=== PATIENT | female | born 1970 | race Caucasian/White ===

== ENCOUNTER → 2021-02-09 10:24 | Outpatient (BNVA) | payer OTHER, SELFPAY | PROVIDERS: Family Provider Family Medicine; Referring Provider Registered Nurse; Visit Provider Anesthesiology Pain Medicine | DX: M54.6 Pain in thoracic spine (principal); M50.020 Cervical disc disorder with myelopathy, mid-cervical region, unspecified level; M54.12 Radiculopathy, cervical region; M54.9 Dorsalgia, unspecified; Z98.1 Arthrodesis status; Z79.891 Long term (current) use of opiate analgesic; Z98.890 Other specified postprocedural states; Z87.891 Personal history of nicotine dependence | CPT/HCPCS: 99213 ==

== ENCOUNTER → 2021-03-08 13:22 | Outpatient (BNVA) | payer OTHER, SELFPAY | PROVIDERS: Family Provider Family Medicine; PCP Family Medicine; Visit Provider Anesthesiology | DX: G89.29 Other chronic pain (principal); M50.020 Cervical disc disorder with myelopathy, mid-cervical region, unspecified level; M54.12 Radiculopathy, cervical region; M54.41 Lumbago with sciatica, right side; M54.42 Lumbago with sciatica, left side; M54.9 Dorsalgia, unspecified; Z98.1 Arthrodesis status; Z98.890 Other specified postprocedural states; Z79.891 Long term (current) use of opiate analgesic | CPT/HCPCS: 99214 ==

== ENCOUNTER 2021-03-14 09:48 | Outpatient (CLI) | payer OTHER, SELFPAY ==
--- NOTE | 2021-03-14 09:56 | MM_ITS ---
WS: [id number] BILATERAL SCREENING DIGITAL MAMMOGRAM WITH CAD HISTORY: SCREENING COMPARISON: 09/30/2018, 09/26/2017 Bilateral CC and MLO views submitted. Computer aided detection analyzed. Breast composition: The breasts are heterogeneously dense, which may obscure small masses. No suspici ous masses, microcalcifications or architectural distortion. There are multiple partially obscured no dules which are stable in the mid LEFT breast. These nodules have been present on prior studies. Jesus gn calcifications in each breast. Lymph node along the posterior RIGHT chest wall. MM/[place] [id number] IMPRESSION: BI-RADS: 2-Benign FOLLOW UP: 1 Year Follow-up
== END 2021-03-14 09:49 | disposition home or self-care (01) ==
LOC: RADSHAW 09:52
PROVIDERS: Family Provider Family Medicine; PCP Registered Nurse; Visit Provider Registered Nurse
DX: Z12.31 Encounter for screening mammogram for malignant neoplasm of breast (principal)
CPT/HCPCS: 77067

== ENCOUNTER → 2021-05-02 10:40 | Outpatient (BNVA) | payer OTHER, SELFPAY | PROVIDERS: Family Provider Family Medicine; PCP Registered Nurse; Visit Provider Anesthesiology | DX: M54.5 Low back pain (principal); M50.020 Cervical disc disorder with myelopathy, mid-cervical region, unspecified level; M54.12 Radiculopathy, cervical region; Z98.1 Arthrodesis status; Z98.890 Other specified postprocedural states; Z79.891 Long term (current) use of opiate analgesic | CPT/HCPCS: 99214 ==

== ENCOUNTER → 2021-07-06 12:53 | Outpatient (BNVA) | payer OTHER, SELFPAY | PROVIDERS: Family Provider Family Medicine; PCP Registered Nurse; Visit Provider Anesthesiology | DX: G89.29 Other chronic pain (principal); M54.50 Low back pain, unspecified; M50.020 Cervical disc disorder with myelopathy, mid-cervical region, unspecified level; M54.12 Radiculopathy, cervical region; Z98.890 Other specified postprocedural states; Z98.1 Arthrodesis status; Z79.891 Long term (current) use of opiate analgesic | CPT/HCPCS: 99214 ==

== ENCOUNTER → 2022-05-28 09:03 | Outpatient (BNVA) | payer OTHER, SELFPAY | PROVIDERS: Family Provider Family Medicine; PCP Registered Nurse; Visit Provider Orthopaedic Surgery | DX: M47.816 Spondylosis without myelopathy or radiculopathy, lumbar region (principal); Z98.1 Arthrodesis status; M41.9 Scoliosis, unspecified | CPT/HCPCS: 72050; 72100 ==

== ENCOUNTER 2022-06-21 10:23 | Outpatient (CLI) | payer OTHER, SELFPAY ==
--- NOTE | 2022-06-21 11:00 | MR_ITS ---
WS: [id number] MRI LUMBAR SPINE NONCONTRAST HISTORY: lower back pain COMPARISON: No similar studies. Radiographs 05/28/2022 TECHNIQUE: Sagittal and axial multisequence imaging is submitted. Posterior lumbar alignment is normal. Less than 2 mm retrolisthesis of L2 and L3. Interbody spacer wi th loss of disc space at L4-5. Spacer appears in appropriate position. Mild disc space narrowing at L5-S1. Conus terminates normally at L1-2 disc level. L1-L2: Normal. L2-L3: Diffuse annular disc bulging slightly greater to the LEFT. Mild encroachment into the LEFT for amen. Deformity and effacement of the ventral CSF. There is mild central and bilateral subarticular r ecess stenosis and foraminal stenosis. Slightly greater contact on the LEFT L2 and L3 nerve roots. L3-L4: Diffuse annular disc bulge slightly greater to the LEFT. Mild facet and ligamentum flavum hype rtrophy. Very mild central and bilateral subarticular recess stenosis. L4-L5: Mild facet and ligamentum flavum hypertrophy. Facet joint arthritis. Hypertrophic osteophytes extend into the foramen bilaterally causing foraminal narrowing, LEFT greater than RIGHT. Posterior l aminectomy defects. L5-S1: Very slight disc bulging and facet and ligamentum flavum arthritis. Mild RIGHT and moderate LE FT foraminal stenosis. Retroperitoneal structures are negative. MR/MR lumbar spine wo con* [id number] IMPRESSION: 1. Interbody spacer at the L4-5 level appears intact. There is mild disc space narrowing. 2. Moderate LEFT foraminal stenosis at L5-S1 and mild RIGHT foraminal stenosi s. 3. Hypertrophic osteophytes at L4-5 causing mild bilateral foraminal stenosis, LEFT greater than RIGHT. 4. Mild central, bilateral subarticular recess and foraminal stenosis at L2-3. Slightly greater contact on the LEFT L2 and L3 nerve roots. 5. Mild central and bilateral subarticular recess stenosis at L3-4.
--- NOTE | 2022-06-21 11:45 | MR_ITS ---
WS: [id number] MRI CERVICAL SPINE NONCONTRAST HISTORY: neck pain COMPARISON: 09/18/2018 Technique: Multiplanar, multisequence noncontrast imaging of the cervical spine. Mild straightening of the normal cervical lordosis. Anterior cervical fusion at C5-6 with interbody s pacer. Moderate disc space narrowing and desiccation at C6-7. Signal within the cervical cord is normal. Visualized posterior fossa is unremarkable. Craniocervical junction, C1 and C2 relationship, odontoid process and soft tissues are normal. C2-C3: Normal. C3-C4: Mild osteophytic ridging. Very mild RIGHT foraminal stenosis. Similar to the prior study with no progression. C4-C5: Mild anterior wedging of C4 is unchanged. No stenosis or disc protrusion. C5-C6: Mild osteophytic ridging with no focal disc protrusion. There is mild encroachment upon the ve ntral thecal sac. Mild central and bilateral foraminal stenosis. C6-C7: Diffuse osteophytic ridging and very mild disc bulging. Moderate size osteophytes and possibly disc extend into the foramina. There is moderate central with moderate to severe bilateral foraminal stenosis. Mild progression since the prior examination from 2018. C7-T1: Normal. Paraspinal soft tissue are normal. MR/MR cervical spin wo con* [id number] IMPRESSION: 1. Prior anterior cervical fusion at C5-6 with interbody spacer is unchanged. 2. Moderate central with moderate to severe bilateral foraminal stenosis at C6 -7 stenosis is predominantly due to osteophyte disease. Only minimal progressio n since the prior study. 3. Mild central and bilateral foraminal stenosis at C5-6. Osteophytic ridging contributing to the stenosis. 4. Mild RIGHT foraminal stenosis at C3-4.
== END 2022-06-21 10:24 | disposition home or self-care (01) ==
LOC: RAD 10:25
PROVIDERS: Family Provider Family Medicine; PCP Registered Nurse; Visit Provider Orthopaedic Surgery
DX: Z98.890 Other specified postprocedural states (principal); Z98.1 Arthrodesis status; M48.02 Spinal stenosis, cervical region; M25.78 Osteophyte, vertebrae; M48.07 Spinal stenosis, lumbosacral region; M48.061 Spinal stenosis, lumbar region without neurogenic claudication
CPT/HCPCS: 72141; 72148

== ENCOUNTER 2022-06-25 15:44 | Outpatient (CLI) | payer OTHER, SELFPAY | END 2022-06-25 15:45 | disposition home or self-care (01) | LOC: SPT 15:45 | PROVIDERS: Family Provider Family Medicine; PCP Registered Nurse; Visit Provider Physician Assistant | DX: Z46.89 Encounter for fitting and adjustment of other specified devices (principal); G56.01 Carpal tunnel syndrome, right upper limb | CPT/HCPCS: L3908 ==

== ENCOUNTER 2022-09-06 05:45 | Day surgery (SDC) | payer MEDICARE, SELFPAY ==
[2022-09-02 08:24] VITALS: BMI 29.2
--- NOTE | 2022-09-02 09:11 | ANES.PREANE2 ---
Pre-Anesthetic Assessment Height/Weight: Height 1.63 m Weight 77.111 kg Preop Diagnosis: Pseudoarthrosis C5-6, degenerative disc disease C6-7, cervical radiculopath Operation Date: 09/06/22 12:40 Proposed Procedures p ACDF C5/6 C6/7 [id number](Not Applicable) - Jared Lowe, DO Familial anesthetic complications: none Was Beta Lakisha taken within 24 hours: N/A Was Clonidine taken within 24 hours: N/A Social Tobacco and No alcohol Exam alert, oriented x 3 and regular rate & rhythm Airway Submandibular: within normal limits Cervical ROM: Other (Some extension limitation from previous surgery, but reasonable ROM) Mallampati: Class II Dentition: full Pulmonary Chronic Obstructive Pulmonary Disease Musc/skel Osteoarthritis/DJD Neuropsych Anxiety and Depression Anesthetic Plan ASA status: 3 Anesthesia: General Medications/Allergies Home Medications Medication Instructions Recorded Confirmed Last Taken Type albuterol sulfate 90 mcg/actuation 2 puff inhalation Q6H PRN 12/27/19 09/02/22 09/01/22 History aerosol inhaler (ProAir HFA) Shortness Of Breath rizatriptan 5 mg tablet 5 mg PO Q2H PRN Migraine Headache 12/27/19 09/02/22 Unknown History sertraline 100 mg tablet (Zoloft) 100 mg PO BID 12/27/19 09/02/22 09/01/22 History hydrocodone 10 mg-acetaminophen 1 tab PO TID PRN pain 30 days #90 09/27/21 09/02/22 09/01/22 Rx 325 mg tablet tabs cock up splint #1 ea 06/25/22 06/25/22 Unknown Rx Intraoperative Neuromonitoring #1 ea 08/19/22 Unknown Rx Allergies Allergy/AdvReac Type Severity Reaction Status Date / Time morphine Allergy Intermediate increases Verified 06/25/22 13:43 heart rate cranberry AdvReac Intermediate hives Verified 06/25/22 13:43 adhesive tape AdvReac Mild rash Verified 06/25/22 13:43 PFS Anesthesia Medical History (Updated 06/25/22 @ 14:27 by Ganga Arredondo PA-C) Cervical disc disorder with myelopathy of mid-cervical region Chronic narcotic use Encounter for narcotic contract discussion Opioid contract exists Pain management contract signed Surgical History (Updated 09/02/22 @ 08:22 by Melissa James) History of lumbar laminectomy 2011, [facility], L4-5 decompression. 2011, [place], L4-5 reexploration. Status post cervical spinal fusion C5-C6 ACDFF, [place], [facility] [place]. Social History Smoking and tobacco status: current every day smoker Second hand smoke exposure: Yes Alcohol intake: never Household members: spouse Marital status: Current occupational status: unemployed History of recent travel: No Data Anesthesia Cardiac Studies: No Data to Display
[2022-09-06] VITALS (8 sets, daily range): BP systolic 123–172; BP diastolic 71–109; PULSE 70–98; RESP 17–18; TEMP 36.2–36.8; O2SAT 90–97
--- NOTE | 2022-09-06 | XR_ITS ---
WS: [id number] Cervical spine, C-arm fluoroscopy views, 09/06/2022 Clinical Data: ACDF C5-6, C6-7 Comparison: Cervical spine, 05/28/2022 Findings: There is an additional anterior cervical disc fusion at C6-C7. The prior anterior cervical disc fusion at C5-6 remains stable. XR/XR cervical spine 3V* [id number] Impression: New anterior cervical disc fusion at C6-C7.
[2022-09-06] MEDS: sodium chloride 0.9% 1,000 ML 30 ML IV (06:06)
--- NOTE | 2022-09-06 06:17 | PM.HP ---
Providers/Chief Complaint Primary Care Provider: Mabel Hilton DO Chief Complaint: ACDF C5/6 C6/7 [id number] History of Present Illness Teri Link is a 52 year old female annalisa and right arm pain which has been ongoing progressively intensifying.? She does have known carpal tunnel syndrome on the right but has had a previous cervical C5-[address] Velázquez.? The pain has progressively intensified in her neck failing conservative treatment such as physical therapy and medications.? She describes headaches pain with any type of activity difficulty sleeping due to positions that her head is in and constant pain.? She describes weakness that travels down into her hand hands go to sleep at night she has not been wearing any braces for carpal tunnel symptoms.? She describes some clumsiness stumbling but also mainly headaches.? Denies any swallowing difficulties. Review of Systems General: Reports: 10 or more systems reviewed and unremarkable except in HPI and below Const: Denies: fever(s) or chills Card: Denies: chest pain or dyspnea on exertion Resp: Denies: dyspnea or productive cough GI: Denies: abdominal pain, nausea or vomiting : Denies: difficulty voiding Musc: Reports: joint pain, joint swelling and limited range of motion Skin/Breast: Denies: changes in skin color or dry skin Neuro: Denies: numbness in extremities or weakness in extremities Psych: Denies: anxiety Stanley/Lymph: Denies: easy bruising or easy bleeding Medications/Allergies Home Medications Medication Instructions Recorded Confirmed Last Taken Type albuterol sulfate 90 mcg/actuation 2 puff inhalation Q6H PRN 12/27/19 09/06/22 09/05/22 History aerosol inhaler (ProAir HFA) Shortness Of Breath rizatriptan 5 mg tablet 5 mg PO Q2H PRN Migraine Headache 12/27/19 09/06/22 Unknown History sertraline 100 mg tablet (Zoloft) 100 mg PO BID 12/27/19 09/06/22 09/05/22 21:00 History hydrocodone 10 mg-acetaminophen 1 tab PO TID PRN pain 30 days #90 09/27/21 09/06/22 09/05/22 21:00 Rx 325 mg tablet tabs cock up splint #1 ea 06/25/22 06/25/22 Unknown Rx Intraoperative Neuromonitoring #1 ea 08/19/22 Unknown Rx Allergies Allergy/AdvReac Type Severity Reaction Status Date / Time morphine Allergy Intermediate increases Verified 09/06/22 05:52 heart rate cranberry AdvReac Intermediate hives Verified 09/06/22 05:52 adhesive tape AdvReac Mild rash Verified 09/06/22 05:52 PFSH Acute PFSH: Medical History (Updated 06/25/22 @ 14:27 by Ganga Arredondo PA-C) Cervical disc disorder with myelopathy of mid-cervical region Chronic narcotic use Encounter for narcotic contract discussion Opioid contract exists Pain management contract signed Surgical History (Updated 09/02/22 @ 08:22 by Melissa James) History of lumbar laminectomy 2011, [facility], L4-5 decompression. 2011, [place], L4-5 reexploration. Status post cervical spinal fusion C5-C6 ACDFF, 1999, [facility] [place]. Social History Smoking and tobacco status: current every day smoker Second hand smoke exposure: Yes Alcohol intake: never Household members: spouse Marital status: Current occupational status: unemployed History of recent travel: No Vitals/I&O/Wt Last Vital Signs Temp 97.4 F L 09/06/22 05:56 Pulse 70 09/06/22 05:56 Resp 18 09/06/22 05:56 BP 139/71 09/06/22 05:56 Pulse Ox 97 09/06/22 05:56 O2 Del Method 09/06/22 05:57 Physical Exam Narrative: Patient demonstrat es normal gait.? N egative Romberg or signs of ataxia.? Normal coordinati on and normal stab ility.? Moderately tender with palpa tion throughout th e cervical and upp er thoracic region s.? Normal sensati on to light touch in all dermatomal layers.? No signs of muscle wasting. ? Normal functiona l range of motion of the cervical wi th flexion to 35 d egrees, extends 25 degrees, rotates 35 degrees symmetr ically without dif ficulty, laterally bends 10 degrees symmetrically.? Po sitive Spurling an d Lira tests.? Normal motor stren gth in all muscle groups with 4/5 st rength in shoulder s, elbows, wrists and digits bilater ally.? No gross la xity.? Reflexes 2+ and symmetric but the biceps, devin ps and brachioradi bailey bilaterally.? Positive Phalen's and Tinel's sign on the right negat diaz on the left.? Radial pulses 2+ b ilaterally.? No pa lpable lymphadenop athy.? No evidence of peripheral sara ma Palpable pain over the right mj ulder with positiv e cross chest posi tive Beltre.? Pos itive supraspinatu s test negative ex am on the left. P atient presents wi th normal gait. ? Demonstrates raisi ng up onto heels a nd toes with diffi culty.? Exhibits n ormal coordination and normal stabil ity.? Moderate pal patory or percussi on pain throughout the paraspinous m usculature of the thoracolumbar spin e.? No obvious cur vature in the forw whit bend test.? Ex amination reveals normal alignment, normal functional range of motion of the thoracolumbar spine with Flexio n to 35 degrees, e xtends 15 degrees, laterally bends 2 0 degrees symmetri manas.? Normal sen sation to light to uch through all de rmatomal layers.? Normal sensation l ight touch down michele th lower extremiti es with 4/5 motor strength throughou t all motor groups .? No palpable david n over the SI join ts bilaterally.? N egative Eloy an d Fabere sign.? Po sitive straight le g raise on the rig ht negative on the left.? Skin is cl ear warm with norm al sensation to li ght touch, calves are supple with no medial thigh tend erness,? negative Homans' sign.? No palpable lymphaden opathy bilaterally .? Reflexes are 2+ and symmetric abo ut the knees and A chilles.? No hyper reflexia or clonus .? Downgoing Desiree ski's bilaterally. ? Dorsalis pedis a nd posterior tibia l pulses are 2+.? No palpable edema bilaterally.? Danish edly tender with p alpation over both greater trochante luciano regions right greater than left. HENMT:?? COMMON NORMALS: no rmocephalic? HEAD & SCALP: normoceph alic Resp:?? COMMON NORMALS: no rmal respiratory e ffort Cardio:?? COMMON NORMALS: re gular rate and reg ular rhythm? RATE: regular rate? RHY THM: regular rhyth m GI:?? COMMON NORMALS: So ft to palpation an d non-tender? PALP ATION: Yes Soft to palpation :?? COMMON NORMALS: Ye s no CVA tendernes s? BLADDER/KIDNEY EXAM: Yes no CVA t enderness Back/Pelvis:?? COMMON NORMALS: no CVA tenderness Psych:?? COMMON NORMALS: me ntal status grossl y normal and coope rative A&P Assessment and plan (1) Cervical spondylosis with radiculopathy: revision C5-6 which shows and appears to be pseudoarthrosis as well as degenerative changes at C6-7.? She does have known right carpal tunnel syndrome we will place her in a cock up wrist splint to be worn at night.? Discussed this at length with Dr. Lowe he reviewed the studies and was in to discuss operative intervention on her cervical spine.? We will proceed with a revision C5-6 and C6-7 ACDF. Attestations Medical Necessity Statement*: failed conservative tx Coding Level of Care Code Acute Wave Guide Assembler for g Fwd Diagnoses Cervical spondylosis with radiculopathy M47.22
[2022-09-06] MEDS: midazolam 1 mg/mL INJ 2 mL 2 MG IVP (06:31)
[2022-09-06] MEDS: ceFAZolin 2,000 MG in sodium chloride 0.9% (plus) 50 ML 100 MG IV (07:00)
--- NOTE | 2022-09-06 07:35 | SUR.OPER ---
family updated of surgical status
--- NOTE | 2022-09-06 07:39 | P.ANESUD_ITS ---
Pre-Anesthetic Update Pre-Anesthetic Assessment: Date of Surgery/Procedure: 09/06/22 Preop Tamanna gnosis: Pseudoarthrosis C5-6, degenerative disc disease C6-7, cervical radiculopath Proposed Procedure: Operation Date: 09/06/22 07:00 Proposed Procedures p ACDF C5/6 C6/7 [id number](Not Applicable) - Jared Lowe, DO Any changes to Pre-Anesthetic Assessment?: No Last Intake: Intake Last Liquid Date 09/05/22 Last Liquid Time 19:30 Last Solid Date 09/05/22 Last Solid Time 19:30 Vitals: Temperature 97.4 F L 09/06/22 05:56 Temperature Source Temporal Artery S can 09/06/22 05:56 Pulse Rate 70 09/06/22 05:56 Respiratory Rate 18 09/06/22 05:56 Blood Pressure 139/71 09/06/22 05:56 Blood Pressure Abbie n 93 09/06/22 05:56 Pulse Oximetry 97 09/06/22 05:56 Oxygen Delivery Me thod 09/06/22 05:57 Exam: Pre-Anes Outpt Exam: alert, oriented x 3, clear to auscultation bilaterally and regular rate & rhythm Cardiac Studies: No Data to Display
--- NOTE | 2022-09-06 08:43 | PM.OP ---
Operative Report Date of procedure: September 06, 2022 Pre-op diagnosis: Preop Diagnosis Pseudoarthrosis C5-6, degenerative disc disease C6-7, cervical radiculopath Post-op diagnosis: same Procedure done: 1. Anterior discectomy C6/7 2. Insertion of Cage C6/7 3. Instrumentation with anterior plate from C6-C7 4. Use of allograft Surgeon: Jared Lowe Defensive Line Coach: Ganga Arredondo Defensive Line Coach: The syrup mixer assistant, Ganga Arredondo, PAC was needed for his expertise under the microscope. He was important and necessary throughout the procedure to complete in a safe and timely manner. He assisted with patient positioning prepping and draping tissue retraction suctioning of the operative field protection of the dural sac and tissue closure Estimated blood loss (mL): 50 Procedure: 1. Anterior discectomy C6/7 2. Insertion of Cage C6/7 3. Instrumentation with anterior plate from C6-C7 4. Use of allograft The patient was taken to the operating room, where he underwent general endotracheal anesthesia without complications. He was then positioned supine on the operating table, and all areas of impingement were well padded. The arms were carefully padded and tucked at his sides. A roll was placed between the shoulder blades.. An x-ray was done to determine the appropriate level for the skin incision. The entire neck was then sterilely prepped and draped in the usual fashion. Neuromonitoring was attached prior to prepping. A transverse skin incision was made and carried down to the platysma muscle. This was then split in line with its fibers. Blunt dissection was carried down medial to the carotid sheath and lateral to the trachea and esophagus until the anterior cervical spine was visualized. A needle was placed into a disc and an x-ray was done to determine its location. The longus colli muscles were then elevated bilaterally with the electrocautery unit. Self-retaining retractors were placed deep to the longus colli muscle. Attention was brought to the C6/7 level that was confirmed on x-ray. A caspar pin was placed into the C6 vertebrae and the C7 vertebrae. The disk space was then distracted. The microscope was then brought in. A radical anterior discectomies were performed at CC6/7. This included complete removal of the anterior annulus, nucleus, and posterior annulus. The posterior longitudinal ligament was removed as were the posterior osteophytes. Foraminotomies were then accomplished bilaterally. This was done using a high speed ameena, kerrison rongeurs and curretes Once all of this was accomplished, the curved currette was used to check for any residual compression. The central canal was wide open as were the foramen. A high-speed bur was used to remove the cartilaginous endplates above and below the interspace. Bleeding cancellous bone was exposed. The disc space were measured and appropriate size cage were placed sterilely onto the field. Allograft graft was packed into the cages. The cage was then placed and there was good juxtaposition against the bleeding decorticated surfaces and good distraction of each interspace. The Leeds pins were removed. Bone wax was used to prevent any bleeding from occurring at the pin sites. A screw was placed through the cage into the C6 vertebrae and another screw was placed through the cage into the C7 vertebra there was excellent purchase. A final x-ray was done confirming good position of the hardware and Cage. The screws were then applied, also with excellent purchase. Following a final copious irrigation, there was good hemostasis and no dural leaks. The carotid pulse was strong. The wounds were then closed in layers using 2-0 Vicryl suture for the platysma muscle, 2-0 Vicryl suture for the subcutaneous tissue, and 4-0 monocryl suture in a subcuticular skin closure. Glue was placed followed by application of a sterile dressing. The drain was hooked to bulb suction. A soft collar was applied. The patient was then carefully returned to the supine position on his hospital bed where he was reversed and extubated and taken to the recovery room having tolerated the procedure well.
[2022-09-06] MEDS: HYDROmorphone 1 mg/mL INJ 1 mL 0.25 MG IVP (09:28)
[2022-09-06] MEDS: HYDROcodone-acetaminophen 5-325 mg Tablet 2 TAB PO (10:04)
--- NOTE | 2022-09-06 15:34 | ANE.PACU2 ---
Inpatient post-anesthesia follow up: Airway intact: Yes Vital signs: Temperature 98.2 F Pulse Rate 74 Respiratory Rate 18 Blood Pressure 123/72 Pulse Oximetry 92 Oxygen Delivery Me thod Room Air Oxygen Flow Rate 6 Fraction of Inspir ed Oxygen Hydration adequate: Yes Nausea and vomiting: No Pain level: 3 Mental status: Baseline
== END 2022-09-06 10:28 | disposition home or self-care (01) ==
PROVIDERS: PCP Family Medicine; Visit Provider Orthopaedic Surgery
PROC: 0RB30ZZ Excision of Cervical Vertebral Disc, Open Approach (ICD-10-PCS; CPT 22551; principal; 2022-09-06 07:00)
DX: S12.400A Unspecified displaced fracture of fifth cervical vertebra, initial encounter for closed fracture (principal); X58.XXXA Exposure to other specified factors, initial encounter; M47.22 Other spondylosis with radiculopathy, cervical region; M50.323 Other cervical disc degeneration at C6-C7 level; J44.9 Chronic obstructive pulmonary disease, unspecified; F17.210 Nicotine dependence, cigarettes, uncomplicated
CPT/HCPCS: 20930; 22551; 22845; 22853; 72040; 76000; C1713; C9359; J0330; J0690; J1100; J1170; J2250; J2370; J2405; J2704; J2710; J3010; J3490; J7030

== ENCOUNTER → 2022-09-17 12:47 | Outpatient (BNVA) | payer MEDICARE, SELFPAY | PROVIDERS: PCP Family Medicine; Visit Provider Orthopaedic Surgery | DX: Z47.89 Encounter for other orthopedic aftercare (principal); Z98.1 Arthrodesis status | CPT/HCPCS: 99024 ==

== ENCOUNTER → 2022-10-15 13:24 | Outpatient (BNVA) | payer MEDICARE, SELFPAY | PROVIDERS: PCP Family Medicine; Visit Provider Orthopaedic Surgery | DX: Z48.89 Encounter for other specified surgical aftercare (principal) | CPT/HCPCS: 72040; 99024 ==

== ENCOUNTER → 2022-11-26 12:48 | Outpatient (BNVA) | payer MEDICARE, SELFPAY | PROVIDERS: PCP Family Medicine; Visit Provider Orthopaedic Surgery | DX: Z47.89 Encounter for other orthopedic aftercare (principal); Z98.1 Arthrodesis status | CPT/HCPCS: 72040; 99024 ==

== ENCOUNTER → 2023-12-25 14:26 | Outpatient (BNVA) | payer MEDICARE, SELFPAY | PROVIDERS: PCP Family Medicine; Visit Provider Dermatology | DX: L72.0 Epidermal cyst (principal); L57.8 Other skin changes due to chronic exposure to nonionizing radiation; L57.3 Poikiloderma of Civatte; L70.0 Acne vulgaris; L81.4 Other melanin hyperpigmentation | CPT/HCPCS: 99214 ==

== ENCOUNTER → 2024-07-30 11:02 | Outpatient (BNVA) | payer MEDICARE, SELFPAY | PROVIDERS: PCP Family Medicine; Visit Provider Student in an Organized Health Care Education/Training Program | DX: G56.03 Carpal tunnel syndrome, bilateral upper limbs; G56.22 Lesion of ulnar nerve, left upper limb | CPT/HCPCS: 73130; 99204 ==

== ENCOUNTER 2024-09-01 07:55 | Day surgery (SDC) | payer MEDICARE, SELFPAY ==
[2024-09-01] VITALS (8 sets, daily range): BP systolic 102–148; BP diastolic 23–83; PULSE 55–70; RESP 16–18; TEMP 36.2–36.5; O2SAT 65–96; BMI 26.5
[2024-09-01] MEDS: sodium chloride 0.9% 1,000 ML 30 ML IV (09:07)
[2024-09-01] MEDS: ketorolac 30 mg/mL INJ IVP (09:08)
[2024-09-01] MEDS: acetaminophen 1,000 MG/100 ML PIGGYBACK 400 MG IV (09:12)
[2024-09-01] MEDS: scopolamine 1.5 Patch 1 PATCH TRANSDERMA (09:23)
--- NOTE | 2024-09-01 09:25 | W.PM.OPSUD ---
Surgery/Procedure H&P Update DATE OF PROCEDURE: September 01, 2024 DATE H&P PERFORMED: 07/30/24 H&P UPDATE INFORMATION: I have reviewed H&P completed within last 30 days, I have examined patient prior to procedure and No changes to prior documentation PREOP DIAGNOSIS: Right carpal tunnel syndrome PRIMARY INDICATION FOR PROCEDURE: Right carpal tunnel syndrome PLANNED PROCEDURE: Operation Date: 09/01/24 09:35 Proposed Procedures p Carpal Tunnel Release(Right) - Gurdeep Zimmer DO
--- NOTE | 2024-09-01 09:26 | W.PM.OPSFHP ---
Same Day Surgery H&P Indication for Procedure/HPI DATE OF PROCEDURE: September 01, 2024 CHIEF COMPLAINT/INDICATIONFOR SURGICAL PROCEDURE: Right carpal tunnel syndrome PREOP DIAGNOSIS: Right carpal tunnel syndrome PLANNED PROCEDURE: Operation Date: 09/01/24 09:35 Proposed Procedures p Carpal Tunnel Release(Right) - Gurdeep Zimmer DO Medications/Allergies* Home Medications Medication Instructions Recorded Confirmed Type albuterol sulfate 90 mcg/actuation 2 puff inhalation Q6H PRN 12/27/19 08/31/24 History aerosol inhaler (ProAir HFA) Shortness Of Breath rizatriptan 5 mg tablet 5 mg PO Q2H PRN Migraine Headache 12/27/19 08/31/24 History sertraline 100 mg tablet (Zoloft) 100 mg PO BID 12/27/19 08/31/24 History Allergies/Adverse Reactions Allergy/AdvReac Type Severity Reaction Status Date / Time morphine Allergy Intermediate increases Verified 08/31/24 13:49 heart rate cranberry AdvReac Intermediate hives Verified 08/31/24 13:49 adhesive tape AdvReac Mild rash Verified 08/31/24 13:49 Current Medications: Generic Name Dose Route Start Last Admin Trade Name Freq PRN Reason Stop Dose Admin Sodium Chloride 1,000 mls @ 30 mls/hr 09/01/24 08:15 09/01/24 09:07 Sodium Chloride 0.9% IV 09/02/24 08:14 30 mls/hr .Q24H KARINA Administration Pertinent History/Comorbid Conditions* Medical History (Updated 09/17/22 @ 14:12 by Jared Lowe DO) Chronic narcotic use Opioid contract exists Pain management contract signed Encounter for narcotic contract discussion Cervical disc disorder with myelopathy of mid-cervical region Surgical History (Updated 02/09/21 @ 13:43 by Rogelio Velez MD) History of lumbar laminectomy 2011, [facility], L4-5 decompression. 2011, [place], L4-5 reexploration. Status post cervical spinal fusion C5-C6 ACDFF, 1999, [facility] [place]. Social History Smoking and tobacco/nicotine status: former use of tobacco/nicotine Second hand smoke exposure: Yes Alcohol intake: never Substance/Drug Use: never Household members: spouse Marital status: Current occupational status: unemployed Pertinent Exam Findings alert, oriented x 3, operative site marked and procedure specific exam findings Please refer to detailed orthopedic examination on 07/30/2024: bilateral upper extremity Exam: Normal C-spine ROM, No pain. Negative Spurling's Negative Tinel's @ shoulder. Normal ROM Negative Tinel's @ elbow Right Positive Tinel's @ elbow Left Normal elbow ROM Positive median compression test, bilaterally Positive Tinel's at the wrist, bilaterally Positive Phalen's, bilaterally. Thenar weakness noted, no atrophy, bilaterally. No Intrinsic atrophy noted, bilaterally. Recommendations Surgery/Procedure today Other Plans: Plan to proceed with right carpal tunnel release surgery today. Patient understands the ins and outs procedure the risk benefits complication alternatives surgery and through shared decision-making elects proceed with surgical intervention. All questions answered at this time. Coding Level of Care Code Acute Code for Fredo Mary
--- NOTE | 2024-09-01 09:50 | ANES.PREANE2 ---
Pre-Anesthetic Assessment Height/Weight: Height 5 ft 3 in Weight 150 lb Temp Pulse Resp BP Pulse Ox O2 Del Method 97.6 F 70 16 148/69 96 Room Air 09/01/24 08:23 09/01/24 08:23 09/01/24 08:23 09/01/24 08:23 09/01/24 08:23 09/01/24 08:35 Preop Diagnosis: Right carpal tunnel syndrome Operation Date: 09/01/24 09:35 Proposed Procedures p Carpal Tunnel Release(Right) - Gurdeep Zimmer, DO Was Beta Lakisha taken within 24 hours: N/A Was Clonidine taken within 24 hours: N/A Last intake: Intake Last Liquid Date 08/31/24 Last Liquid Time 18:00 Last Solid Date 08/31/24 Last Solid Time 18:00 Social Tobacco and No alcohol Exam alert, oriented x 3, clear to auscultation bilaterally and regular rate & rhythm Airway Submandibular: within normal limits Cervical ROM: within normal limits Mallampati: Class II Dentition: full Anesthetic Plan ASA status: 2 Anesthesia: MAC Other: Patient is reportedly very slow to wake up NPO since yesterday S/p cervical fusion, on chronic hydrocodone Occasional smoking, uses chronic inhalers Denies any cardiac issues METs greater than 4 Plan for MAC anesthetic with local via surgeon Medications/Allergies Home Medications Medication Instructions Recorded Confirmed Last Taken Type albuterol sulfate 90 mcg/actuation 2 puff inhalation Q6H PRN 12/27/19 08/31/24 08/31/24 History aerosol inhaler (ProAir HFA) Shortness Of Breath rizatriptan 5 mg tablet 5 mg PO Q2H PRN Migraine Headache 12/27/19 08/31/24 Unknown History sertraline 100 mg tablet (Zoloft) 100 mg PO BID 12/27/19 08/31/24 08/31/24 History hydrocodone 10 mg-acetaminophen 1 tab PO TID PRN pain 30 days #90 09/27/21 08/31/24 08/31/24 Rx 325 mg tablet tabs cock up splint #1 ea 06/25/22 07/30/24 Unknown Rx Bone growth stimulator [id number] #1 ea 09/06/22 07/30/24 Unknown Rx cyclobenzaprine 5 mg tablet 5 mg PO TID PRN muscle spasm #90 09/17/22 08/31/24 Unknown Rx tabs Allergies Allergy/AdvReac Type Severity Reaction Status Date / Time morphine Allergy Intermediate increases Verified 08/31/24 13:49 heart rate cranberry AdvReac Intermediate hives Verified 08/31/24 13:49 adhesive tape AdvReac Mild rash Verified 08/31/24 13:49 Current Medications Generic Name Dose Route Start Last Admin Trade Name Chrisq PRN Reason Stop Dose Admin Sodium Chloride 1,000 mls @ 30 mls/hr 09/01/24 08:15 09/01/24 09:07 Sodium Chloride 0.9% IV 09/02/24 08:14 30 mls/hr .Q24H KARINA Administration PFS Anesthesia Medical History Chronic narcotic use Opioid contract exists Pain management contract signed Encounter for narcotic contract discussion 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 2011, [place], L4-5 reexploration. [place] post cervical [place] C5-C6 [place] [facility] [place] Social History Smoking and tobacco/nicotine status: former use of tobacco/nicotine Second hand smoke exposure: Yes Alcohol intake: never Substance/Drug Use: never Household members: spouse Marital status: Current occupational status: unemployed Data Anesthesia Cardiac Studies: No Data to Display
[2024-09-01] MEDS: ceFAZolin 2,000 MG in sodium chloride 0.9% (plus) 50 ML 100 MG IV (11:22)
[2024-09-01] MEDS: lidocaine-epi 1% PF 1:200,000 30 mL SDV INJECTION (11:42)
[2024-09-01] MEDS: ROPivacaine 0.5% SDV 30 mL 150 MG INJECTION (11:42)
--- NOTE | 2024-09-01 12:11 | P.BOP_ITS ---
Date of Procedure: 09/01/24 Surgeon: Gurdeep Zimmer DO Professional System Administrator(s): None Procedure(s) performed: Right carpal tunnel release Findings of the procedure(s): Right carpal tunnel syndrome underwent procedure as planned without issues or complications Estimated blood loss: 2 mL Specimen(s) removed: None Post-operative diagnosis: Right carpal tunnel syndrome
--- NOTE | 2024-09-01 12:12 | PM.OP ---
Operative Report Date of procedure: September 01, 2024 Surgeon: Gurdeep Zimmer DO Procedure: Preop Diagnosis: Right Carpal Tunnel Syndrome Post-op diagnosis: Same Procedure done: 1. Right carpal tunnel release Surgeon: Gurdeep Zimmer DO Anesthesia: MAC (Local) Estimated blood loss: [2 ]mL Tourniquet time [12 ]minutes IV fluids: See anesthesia record Complications: None Findings: See operative report narrative Condition: stable Disposition: same day Brief History: Patient is a pleasant [54 ]year-old [ F] with right carpal tunnel syndrome. Patient has been worked up in the outpatient setting findings and physical examination consistent with this. Patient nerve conduction studies consistent with carpal tunnel syndrome. We detailed out patient's risk benefits complication alternatives with surgical and nonsurgical treatment options. Through shared decision making, patient agrees to proceed with surgical intervention of the right carpal tunnel release . Patient understands and agrees with current plan. All questions answered. Patient elects to proceed with surgical intervention with carpal tunnel release. Procedure: Patient seen and evaluated in the preoperative holding area. Consent was reviewed and signed with patient. Correct extremity was marked. Patient was seen evaluated by the anesthesia department once cleared for surgery was brought back to the operative suite. Patient was kept on [facility] in supine position all bony prominences were well-padded patient properly secured to the bed. Right upper extremity was then placed onto an armboard. A nonsterile tourniquet was applied to the RIght upper arm. Patient underwent anesthesia per the anesthesia department. Patient's Right upper extremity was then prepped and draped in standard orthopedic fashion. Final timeout performed. Patient received appropriate preoperative antibiotics. Under sterile aseptic technique patient received local anesthesia over the preplanned carpal tunnel incision site. Esmarch was used to exsanguinate the Right upper extremity and tourniquet was insufflated to 250 mmHg. A standard mini open Right carpal tunnel incision was made. Starting distally at Auguste's cardinal line in line with the fourth ray extending proximally distal to the wrist crease centered over the carpal tunnel. Sharp scalpel incision was made through skin and subcutaneous tissue. Self-retaining retractor was placed and the palmar fascia was identified. This was then split longitudinally and direct visualization of the transverse carpal ligament was then made. I then utilizing scalpel feathered through the transverse carpal ligament until I entered the floor of the transverse carpal tunnel ligament into the carpal tunnel. Next I switched to dissection scissors and completed my release of the transverse carpal ligament distally with care to protect the recurrent motor branch. I completely released into the palmar fat and until no entrapment was noted distally. Care was made to protect the superficial palmar arch during my distal dissection. Next I utilized a nasal speculum placed on top of the transverse carpal ligament and utilize this to retract the subcutaneous fat and tissue and under direct loupe magnification was able to identify the transverse carpal ligament. Next I then protected the contents of the carpal tunnel and subsequently utilizing dissection scissors under loupe magnification completely released the transverse carpal ligament proximally into the antebrachial fascia. Care was made to protect the palmar cutaneous branch by keeping my scissors curved ulnarly. Once completely released, I then placed my [place] and had appropriate decompression of the carpal tunnel proximally as well as distally. I then inspected the contents of the carpal tunnel which showed an hourglass shape of the median nerve showing its compression. No masses were noted. Tendons appeared healthy. Wound was then thoroughly irrigated. Tourniquet deflated. Hemostasis satisfactory with bipolar electrocautery. I then closed the incision with interrupted nylon stitches. Xeroform 4 x 4's and a bulky soft dressing was applied. Patient was then awakened from anesthesia and taken to PACU in stable condition. Patient tolerated procedure without complications. Disposition: Patient taken to PACU in stable condition recovering well. Dressing clean dry and intact. Patient will receive appropriate discharge instructions as well as pain medication postoperatively. Patient to follow-up with me in the office in 2 weeks. They understand they may be weightbearing as tolerated to the right hand. Patient should keep incision clean dry and intact. Patient understands if any questions or concerns may contact the office.
--- NOTE | 2024-09-01 13:57 | ANE.PACU2 ---
Inpatient post-anesthesia follow up: Airway intact: Yes Vital signs: Temperature 97.7 F Pulse Rate 67 Respiratory Rate 16 Blood Pressure 124/23 Pulse Oximetry 65 Oxygen Delivery Me thod Room Air Oxygen Flow Rate Fraction of Inspir ed Oxygen Hydration adequate: Yes Nausea and vomiting: No Pain level: 1 Mental status: Baseline
== END 2024-09-01 13:58 | disposition home or self-care (01) ==
PROVIDERS: PCP Family Medicine; Visit Provider Student in an Organized Health Care Education/Training Program
PROC: (CPT 64721; principal; 2024-09-01 09:35)
DX: G56.01 Carpal tunnel syndrome, right upper limb (principal); Z87.891 Personal history of nicotine dependence; Z79.891 Long term (current) use of opiate analgesic
CPT/HCPCS: 64721; J0131; J0690; J1885; J2704; J2795; J3010; J7030

== ENCOUNTER → 2024-09-16 09:45 | Outpatient (BNVA) | payer MEDICARE, SELFPAY | PROVIDERS: PCP Family Medicine; Visit Provider Physician Assistant | DX: Z98.890 Other specified postprocedural states (principal) | CPT/HCPCS: 99024 ==

== ENCOUNTER → 2024-12-24 09:43 | Outpatient (BNVA) | payer MEDICARE, SELFPAY | PROVIDERS: PCP Family Medicine; Visit Provider Nurse Practitioner Family | DX: L72.0 Epidermal cyst (principal); L57.8 Other skin changes due to chronic exposure to nonionizing radiation; L81.4 Other melanin hyperpigmentation; L70.0 Acne vulgaris; L82.1 Other seborrheic keratosis | CPT/HCPCS: 99214 ==

== ENCOUNTER 2025-01-18 10:38 | Outpatient (CLI) | payer MEDICARE, SELFPAY ==
--- NOTE | 2025-01-18 10:46 | MM_ITS ---
WS: [id number] VIEWS: MLO, CC, and ML views both breasts. 3D digital tomosynthesis is also included in this exam. Comparison made with prior exam of 09/26/2017, 09/30/2018 and 03/14/2021. 05/18/2012, 05/23/2014, 09/13/2015, . Findings: The breasts are heterogeneously dense, which may obscure small masses. No sign of suspicious mass, tumor calcification or architectural distortion. No change. MM/MM diag BI tomosynthesis [id number] Impression: BI-RADS: 2 - Benign FOLLOW-UP: 1 Year Follow-up This mammogram was also analyzed by the Computer Aided Detection System R2 Imag e [facility] Nurse.
== END 2025-01-18 10:39 | disposition home or self-care (01) ==
LOC: RAD 10:39
PROVIDERS: PCP Family Medicine; Visit Provider Family Medicine
DX: R92.8 Other abnormal and inconclusive findings on diagnostic imaging of breast (principal); R92.333 Mammographic heterogeneous density, bilateral breasts
CPT/HCPCS: 77062; G0279

== ENCOUNTER 2025-03-29 09:33 | Outpatient (CLI) | payer MEDICARE, SELFPAY ==
--- NOTE | 2025-03-29 09:39 | XR_ITS ---
WS: [id number] XR hip RT 2-3V wo/w pel* [id number] REASON FOR EXAM: R CHRONIC HIP PAIN FINDINGS: No fracture or focal bone lesion. The joint space is intact and relatively well preserved with minimal subchondral sclerosis of the acetabulum. Minimal osteophytosis of the femoral head. XR/XR hip RT 2-3V wo/w pel* [id number] IMPRESSION: Minimal osteoarthritis of the right hip.
== END 2025-03-29 09:34 | disposition home or self-care (01) ==
PROVIDERS: PCP Family Medicine; Visit Provider Family Medicine
DX: M25.551 Pain in right hip (principal); G89.29 Other chronic pain
CPT/HCPCS: 73502

== ENCOUNTER → 2025-05-05 13:22 | Outpatient (BNVA) | payer MEDICARE, SELFPAY | PROVIDERS: PCP Family Medicine; Visit Provider Orthopaedic Surgery | DX: M48.062 Spinal stenosis, lumbar region with neurogenic claudication (principal); M54.6 Pain in thoracic spine; M79.604 Pain in right leg; M79.605 Pain in left leg | CPT/HCPCS: 72072; 72110; 99213 ==

== ENCOUNTER 2025-06-07 13:12 | Outpatient (CLI) | payer MEDICARE, SELFPAY ==
--- NOTE | 2025-06-07 13:45 | MR_ITS ---
WS: [id number] MRI LUMBAR SPINE NONCONTRAST HISTORY: lumbar pain radiating to both legs, prior lumbar spine surgery x2. COMPARISON: 06/21/2022 TECHNIQUE: Sagittal and axial multisequence imaging is submitted. Anterior cervical fusion hardware C5, C6 and C7. 2 mm retrolisthesis of L3. Interbody disc spacer at L4-5. Mild disc space narrowing at L2-3. There is a small amount of edema in the posterior endplates of L2 and L3. No fractures. Conus terminates normally at L1-2 disc level. L1-L2: Mild disc bulging. No disc protrusions or stenosis. L2-L3: Mild annular disc bulging. Central disc osteophyte complex encroaches upon the ventral thecal sac with flattening. Mild central and bilateral subarticular recess stenosis. Bilateral foraminal disc osteophyte disease. Mild foraminal stenosis also. L3-L4: Mild disc bulging with a moderate LEFT paracentral disc protrusion extending into the LEFT subarticular recess and contacting the traversing LEFT L4 nerve root. There is also mild narrowing of the RIGHT subarticular recess. Mild bilateral foraminal stenosis, LEFT greater than RIGHT. L4-L5: Mild annular disc bulging with a large posterior laminectomy defect. Facet and ligamentum flavum hypertrophy. No central stenosis. Mild bilateral foraminal stenosis due to disc osteophyte disease. L5-S1: Mild annular disc bulging. Shallow central disc protrusion. Mild RIGHT with moderate LEFT foraminal stenosis due to disc osteophyte disease. Mild bilateral facet joint arthritis. Paravertebral soft tissues are normal. MR/MR lumbar spine wo con* [id number] IMPRESSION: 1. Prior interbody disc spacer at L4-5 appears appropriate. 2. L2-3: Central disc osteophyte complex encroaching upon the ventral thecal s ac. Mild central, bilateral subarticular recess and foraminal stenosis due to d isc osteophyte disease. 3. L3-4: Moderate size LEFT paracentral disc protrusion extending into the sub articular recess and contacting the traversing LEFT L4 nerve root. Additional m ild contact on the RIGHT L4 nerve root. 4. L3-4: Mild bilateral subarticular recess and foraminal stenosis, LEFT great er than RIGHT. 5. L4-5: Mild bilateral foraminal stenosis due to disc osteophyte disease. 6. Mild RIGHT and moderate LEFT foraminal stenosis due to disc osteophyte dise ase at L5-S1.
== END 2025-06-07 13:13 | disposition home or self-care (01) ==
LOC: RAD 13:17
PROVIDERS: PCP Family Medicine; Visit Provider Orthopaedic Surgery
DX: M48.062 Spinal stenosis, lumbar region with neurogenic claudication (principal); Z09 Encounter for follow-up examination after completed treatment for conditions other than malignant neoplasm; Z98.890 Other specified postprocedural states
CPT/HCPCS: 72148; 99213